=== PATIENT | male | born 1960 | race Caucasian/White ===

== ENCOUNTER 2018-03-07 16:06 | Day surgery (SDC) | END 2018-03-07 17:18 | disposition home or self-care (01) ==

== ENCOUNTER 2019-06-28 10:12 | Emergency (ER) | payer OTHER ==
[~2019-06-28] VITALS: Ht 162.6 cm; Wt 90.0 kg
[~2019-06-28 10:12] MED LIST: BISA-57 PO; CEPH-443 PO; HYDR-4011 PO; IBUP-1542 PO
[2019-06-28 10:16] VITALS: BP 139/87; PULSE 66; RESP 18; Ht 162.6 cm; Wt 90.0 kg
[2019-06-28] MEDS ORDERED: LIDOCAINE 4% CR TOP ONE (11:00)
[2019-06-28] MEDS ORDERED: LIDOCAINE 1% (MDV) 20 ML INJ SC ONE (11:00)
[2019-06-28] MEDS ORDERED: IBUPROFEN 800 MG TAB PO ONE (11:00)
[2019-06-28] MEDS ORDERED: NEOMYC/POLYMYX/BACIT 30 GM OINT TOP ONE (11:00)
--- NOTE | 2019-06-28 14:18 | ERD ---
ER Documentation Chief Complaint Chief Complaint HAS HEMORRHOIDS X3 DAYS, NOT TO PUSHED BACK HPI 58-year-old male presents with complaint of hemorrhoid for the past 3 days. States is been unable to present back. States that time is very tender to palpation. Denies any fevers, chills, hematochezia, constipation, diarrhea. ROS All systems reviewed and are negative except as per history of present illness. Medications Home Meds Active Scripts Bisacodyl* (Dulcolax*) 5 Mg Tablet.dr, 5 MG PO DAILY for 7 Days, TAB Prov:BRIELLE MALLORY 06/28/19 Ibuprofen* (Motrin*) 600 Mg Tab, 600 MG PO Q6, #30 TAB Prov:BRIELLE MALLORY 06/28/19 Cephalexin* (Keflex*) 500 Mg Capsule, 500 MG PO QID for 7 Days, CAP Prov:BRIELLE MALLORY 06/28/19 Hydrocodone/Acetaminophen ([place] 5-325 Tablet) 1 Each Tablet, 1 TAB PO Q6H PRN for PAIN, #10 TAB Prov:BRIELLE MALLORY 06/28/19 Reported Medications [None] No Conflict Check 03/07/18 Allergies Allergies: Coded Allergies: No Known Allergy (Unverified , 11/07/14) PMhx/Soc Medical and Surgical Hx: pt denies Surgical Hx History of Surgery: No Anesthesia Reaction: No Hx Neurological Disorder: No Hx Respiratory Disorders: No Hx Cardiac Disorders: No Hx Psychiatric Problems: No Hx Miscellaneous Medical Probl: Yes (HEMORRHOIDS) Hx Alcohol Use: No Hx Substance Use: No Hx Tobacco Use: No Smoking Status: Never smoker FmHx Family History: No diabetes, No coronary disease, No other Physical Exam Vitals Vital Signs Date Temp Pulse Resp B/P (MAP) Pulse Ox O2 O2 Flow FiO2 Time Delivery Rate 06/28/19 98.1 66 18 139/87 99 10:16 (104) Physical Exam Const: No acute distress Head: Atraumatic Eyes: Normal Conjunctiva ENT: Normal External Ears, Nose and Mouth. Neck: Full range of motion. No meningismus. Resp: Clear to auscultation bilaterally Cardio: Regular rate and rhythm, no murmurs Abd: Soft, non tender, non distended. Normal bowel sounds Skin: No petechiae or rashes Back: No midline or flank tenderness Ext: No cyanosis, or edema Neur: Awake and alert Psych: Normal Mood and Affect Rectal: Thrombosed approximately 2 cm hemorrhoid noted at the anus. Tender to palpation. No drainage or lymphatic streaking noted. Results 24 hrs Current Medications Medications Dose Sig/[place] Start Time Status Last (Trade) Ordered Route PRN Stop Time Admin Dose Reason Admin Ibuprofen 800 mg ONCE ONCE 06/28/19 DC (Motrin) PO 11:00 06/28/19 11:01 Lidocaine 1 applic ONCE ONCE 06/28/19 DC (Lmx 4% Plus) TOP 11:00 06/28/19 11:01 Lidocaine 20 ml ONCE ONCE 06/28/19 DC (Xylocaine SC 11:00 06/28/19 1% (Mdv) 20 11:01 ml) Neomycin/ 1 applic ONCE ONCE 06/28/19 DC Polymyxin/ TOP 11:00 06/28/19 Bacitracin 11:01 (Neosporin Topical Oint) Procedures/MDM Hemorrhoid incision and Drainage with irrigation by me: Location: Anus Anesthesia: Local 1% Lidocaine Technique: Irrigated. Disrupted loculations w/ instrumentation. Elliptical incision made Packing: Yes Complications: Neurovascularly intact post procedure 48 hour wound check. Scar minimization instructions given. MDM: Hemorrhoid incision and drainage was performed using the above technique. Patient tolerated procedure well. Patient advised to return in 48 hours for wound check. At this point of low suspicion for abscess, acute space infection, cellulitis or any emergent condition. Patient given Rx for Keflex, [place] for breakthrough pain, ibuprofen, Dulcolax. Patient advised to eat foods containing fiber and increased water intake. At this time, patient is stable for discharge and outpatient management. I have instructed the patient to follow-up with his/her primary care physician in 1 day return in 48 hours for wound check. I have discussed with the patient the p ossibility of needing to see a specialist for further workup and imaging studies if symptoms persist. I have instructed the patient to promptly return to the ER for any new or worsening symptoms including but not limited to increased pain, fever, nausea, vomiting, weakness or LOC. The patient and/or family expressed understanding of and agreement with this plan. All questions were answered. Home care instructions were provided. DISCLAIMER: Inadvertent spelling and grammatical errors are likely due to EHR/dictation software use and do not reflect on the overall quality of patient care. Also, please note that the electronic time recorded on this note does not necessarily reflect the actual time of the patient encounter. Departure Diagnosis: Primary Impression: Hemorrhoid Condition: Stable Patient Instructions: Treating Hemorrhoids: Self-Care, Thrombosed Hemorrhoids, Treating Hemorrhoids: Removal, Treating Hemorrhoids: Surgery, Understanding Hemorrhoids, Diagnosing Hemorrhoids, Hemorrhoids Referrals: [facility] YOU HAVE RECEIVED A MEDICAL SCREENING EXAM AND THE RESULTS INDICATE THAT YOU DO NOT HAVE A CONDITION THAT REQUIRES URGENT TREATMENT IN THE EMERGENCY DEPARTMENT. FURTHER EVALUATION AND TREATMENT OF YOUR CONDITION CAN WAIT UNTIL YOU ARE SEEN IN YOUR DOCTORS OFFICE WITHIN THE NEXT 1-2 DAYS. IT IS YOUR RESPONSIBILITY TO MAKE AN APPOINTMENT FOR FOLOW-UP CARE. IF YOU HAVE A PRIMARY DOCTOR --you should call your primary doctor and schedule an appointment IF YOU DO NOT HAVE A PRIMARY DOCTOR YOU CAN CALL OUR PHYSICIAN REFERRAL HOTLINE AT IF YOU CAN NOT AFFORD TO SEE A PHYSICIAN YOU CAN CHOSE FROM THE FOLLOWING [facility] [address] [facility] [address] [facility] [address] [facility] [address] [facility] [address] [facility]. [facility]. [address] Additional Instructions: Return to this facility in 2 DAYS for a follow-up exam.Return sooner if your condition worsens. BRIELLE MALLORY Jun 28, 2019 14:18
== END 2019-06-28 13:21 | disposition home or self-care (01) ==
LOC: FTE 10:12
DX: K64.9 Unspecified hemorrhoids (principal)
CPT/HCPCS: 46083; Z7502; Z7610

== ENCOUNTER 2019-06-30 12:42 | Emergency (ER) | payer OTHER ==
[~2019-06-30] VITALS: Ht 180.3 cm; Wt 88.3 kg
[2019-06-30 12:59] VITALS: BP 128/68; PULSE 67; RESP 18; Ht 180.3 cm; Wt 88.3 kg
--- NOTE | 2019-06-30 14:11 | ERD ---
ER Documentation Chief Complaint Chief Complaint wound check I&D 2 days ago-rectum HPI 58-year-old male presents for wound check for an I&D done to relieve the hemorrhoid in his rectum 2 days ago. Patient denies any fevers or chills. Patient denies any blood or discharge from the wound. Patient states he feels much better than prior to the I&D. Patient denies any new complications or symptoms. ROS All systems reviewed and are negative except as per history of present illness. Medications Home Meds Active Scripts Bisacodyl* (Dulcolax*) 5 Mg Tablet.dr, 5 MG PO DAILY for 7 Days, TAB Prov:BRIELLE MALLORY 06/28/19 Ibuprofen* (Motrin*) 600 Mg Tab, 600 MG PO Q6, #30 TAB Prov:BRIELLE MALLORY 06/28/19 Cephalexin* (Keflex*) 500 Mg Capsule, 500 MG PO QID for 7 Days, CAP Prov:BRIELLE MALLORY 06/28/19 Hydrocodone/Acetaminophen ([place] 5-325 Tablet) 1 Each Tablet, 1 TAB PO Q6H PRN for PAIN, #10 TAB Prov:BRIELLE MALLORY 06/28/19 Reported Medications [None] No Conflict Check 03/07/18 Allergies Allergies: Coded Allergies: No Known Allergy (Unverified , 11/07/14) PMhx/Soc Medical and Surgical Hx: pt denies Surgical Hx History of Surgery: No Anesthesia Reaction: No Hx Neurological Disorder: No Hx Respiratory Disorders: No Hx Cardiac Disorders: No Hx Psychiatric Problems: No Hx Miscellaneous Medical Probl: Yes (HEMORRHOIDS) Hx Alcohol Use: No Hx Substance Use: No Hx Tobacco Use: No Smoking Status: Never smoker FmHx Family History: No diabetes Physical Exam Vitals Vital Signs Date Temp Pulse Resp B/P (MAP) Pulse Ox O2 O2 Flow FiO2 Time Delivery Rate 06/30/19 98.4 67 18 128/68 97 12:59 (88) Physical Exam Const: No acute distress Head: Atraumatic Resp: Clear to auscultation bilaterally Cardio: Regular rate and rhythm, no murmurs Abd: Soft, non tender, non distended. Normal bowel sounds Skin: Rectum: Hemorrhoid present in his rectum. I&D incision present with no discharge, no warmth, no erythema, no signs of infection. Healing nicely Neur: Awake and alert Psych: Normal Mood and Affect Procedures/MDM ED COURSE: The patient was stable throughout ED course. I kept the patient informed of laboratory and diagnostic imaging results throughout the ED course. MEDICAL DECISION MAKING: Patient is a 58-year-old male presenting for 2-day I&D check. Wound shows no evidence of infection, foreign body, neurologic injury, vascular injury, open joint or tendon laceration. Patient appropriate for outpatient follow up. Vital signs were reviewed. Patient is afebrile. Patient was not hypoxic. Patient was hemodynamically stable. Patient was told to follow up with primary care for further care and management. DISCHARGE: At this time, patient is stable for discharge and outpatient management. I have instructed the patient to follow-up with their primary care physician in 1-2 days. I have discussed with the patient the possibility of needing to see a specialist for further workup and imaging studies if symptoms persist. I have instructed the patient to promptly return to the ER for any new or worsening symptoms including increased pain, fever, nausea, vomiting, weakness or LOC. The patient expressed understanding of and agreement with this plan. All questions were answered. Home care instructions were provided. Disclaimer: Inadvertent spelling and grammatical errors are likely due to EHR/dictation software use and do not reflect on the overall quality of patient care. Also, please note that the electronic time recorded on this note does not necessarily reflect the actual time of the patient encounter. Departure Diagnosis: Primary Impression: Encounter for wound re-check Additional Impression: Hemorrhoid Hemorrhoid type: unspecified Qualified Codes: K64.9 - Unspecified hemorrhoids Condition: Fair Patient Instructions: Wound Care Referrals: [facility] YOU HAVE RECEIVED A MEDICAL SCREENING EXAM AND THE RESULTS INDICATE THAT YOU DO NOT HAVE A CONDITION THAT REQUIRES URGENT TREATMENT IN THE EMERGENCY DEPARTMENT. FURTHER EVALUATION AND TREATMENT OF YOUR CONDITION CAN WAIT UNTIL YOU ARE SEEN IN YOUR DOCTORS OFFICE WITHIN THE NEXT 1-2 DAYS. IT IS YOUR RESPONSIBILITY TO MAKE AN APPOINTMENT FOR FOLOW-UP CARE. IF YOU HAVE A PRIMARY DOCTOR --you should call your primary doctor and schedule an appointment IF YOU DO NOT HAVE A PRIMARY DOCTOR YOU CAN CALL OUR PHYSICIAN REFERRAL HOTLINE AT IF YOU CAN NOT AFFORD TO SEE A PHYSICIAN YOU CAN CHOSE FROM THE FOLLOWING [facility] [address] [facility] [address] [facility] [facility] [address] [facility] [address] [facility] [address] [facility] [address] [facility]. [facility] YOU HAVE RECEIVED A MEDICAL SCREENING EXAM AND THE RESULTS INDICATE THAT YOU DO NOT HAVE A CONDITION THAT REQUIRES URGENT TREATMENT IN THE EMERGENCY DEPARTMENT. FURTHER EVALUATION AND TREATMENT OF YOUR CONDITION CAN WAIT UNTIL YOU ARE SEEN IN YOUR DOCTORS OFFICE WITHIN THE NEXT 1-2 DAYS. IT IS YOUR RESPONSIBILITY TO MAKE AN APPOINTMENT FOR FOLOW-UP CARE. IF YOU HAVE A PRIMARY DOCTOR --you should call your primary doctor and schedule and appointment IF YOU DO NOT HAVE A PRIMARY DOCTOR YOU CAN CALL OUR PHYSICIAN REFERRAL HOTLINE AT . IF YOU CAN NOT AFFORD TO SEE A PHYSICIAN YOU CAN CHOSE FROM THE FOLLOWING [facility] INSTITUTIONS: [facility] [address] [place] [address] [facility] [address] [place] [address] [facility] [address] [place] [address] Additional Instructions: Call your primary care doctor TOMORROW for an appointment during the next 1-2 days.See the doctor sooner or return here if your condition worsens before your appointment time. ASCENCION CARDENAS PA-C Jun 30, 2019 14:11
== END 2019-06-30 14:43 | disposition home or self-care (01) ==
LOC: FTE 12:42
DX: K64.9 Unspecified hemorrhoids (principal)
CPT/HCPCS: 99284